=== PATIENT | female | born 1995 | race Caucasian/White ===

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

== ENCOUNTER 2022-03-13 13:20 | Outpatient (CLI) | payer OTHER, BC ==
[2022-03-13 14:37] VITALS: BP 117/60; PULSE 97; RESP 16; TEMP 99
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
== END 2022-03-13 14:07 | disposition home or self-care (01) ==
LOC: FBPOP 13:20
PROVIDERS: ATTEND Obstetrics & Gynecology
DX: O26.92 Pregnancy related conditions, unspecified, second trimester (principal); Z3A.21 21 weeks gestation of pregnancy; Z88.1 Allergy status to other antibiotic agents; Z88.5 Allergy status to narcotic agent; Z88.0 Allergy status to penicillin
CPT/HCPCS: 99213

== ENCOUNTER 2022-03-30 21:17 | Outpatient (CLI) | payer OTHER, BC ==
[2022-03-30] MEDS ORDERED: ONDANSETRON 4 MG/2 ML VIAL IVP STA (21:49)
[2022-03-30] MEDS ORDERED: LACTATED RINGERS 1,000 ML IV SCH (22:00)
[2022-03-30 22:22] LABS: Appearance,Urine Clear (Clear); Bacteria,Urine Moderate /hpf; Bilirubin,Urine Negative (Negative); Blood,Urine Negative (Negative); Color,Urine Yellow; Glucose,Urine (UA) Negative (Negative); Ketones,Urine Negative (Negative); Leukocyte Esterase,Urine Moderate (Negative); Mucus,Urine Moderate /hpf; Nitrite,Urine Negative (Negative); PH, Urine 6.5 (5.0-8.0); Protein,Urine Trace (Negative); RBC,Urine 5 /hpf (0-5); Specific Gravity,Urine 1.024 (1.001-1.035); Squamous Epithelial Cell,Urine 4 /hpf (0-4); WBC,Urine 10 /hpf (0-5)
[2022-03-30 22:22] LABS: African American GFR (CKD) >90 (>60 ml/min/1.73 sqM); Anion Gap 5 mmol/L; Blood Urea Nitrogen 9 mg/dL (7-17); Calcium 8.5 mg/dL (8.4-10.2); Carbon Dioxide 25 mmol/L (22-30); Chloride 104 mmol/L (98-107); Glucose 90 mg/dL (74-99); Non-African American GFR(CKD) >90 (>60 ml/min/1.73 sqM); Potassium 3.6 mmol/L (3.5-5.1); Sodium 134 mmol/L (137-145)
[2022-03-30 23:11] VITALS: BP 114/69; PULSE 100; RESP 17; TEMP 98.3
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
== END 2022-03-30 23:00 | disposition home or self-care (01) ==
LOC: FBPOP 21:17
PROVIDERS: ATTEND Obstetrics & Gynecology
DX: O26.892 Other specified pregnancy related conditions, second trimester (principal); Z3A.24 24 weeks gestation of pregnancy; R11.2 Nausea with vomiting, unspecified; Z88.0 Allergy status to penicillin; Z88.1 Allergy status to other antibiotic agents; Z88.5 Allergy status to narcotic agent
CPT/HCPCS: 99214; 96361; 96374; 36415; 80048; 81001; 87086; J2405

== ENCOUNTER 2022-06-19 21:41 | Outpatient (CLI) | payer BC, OTHER ==
[2022-06-19 22:05] VITALS: BP 119/67; PULSE 98; RESP 17; TEMP 97.6
[2022-06-19] MEDS ORDERED: LACTATED RINGERS 1,000 ML IV SCH (22:30)
[2022-06-19 23:02] LABS: ALT 23 U/L (4-34); AST 29 U/L (14-36); Amylase 74 U/L (30-110); Lipase 54 U/L (23-300)
--- NOTE | 2022-07-09 18:02 | P.MSEPDOC ---
Presenting Problems - Arrival Data Date of Arrival on Unit: 06/19/22 Time of Arrival on Unit: 21:41 Mode of Transport: Ambulatory - Complaint OB-Reason for Admission/Chief Complaint: Pain, Other Comment: Pt presents to triage with c/o diarrhea every time she eats something since yesterday morning and pain in her right upper quadrant since last night that she rates 5 out of 10 Medical History - Information : 2 Para: 0 Term: 0 : 0 Abortions: Spontaneous or Elective: 1 Number of Living Children: 0 - Gestational Age Gestational Age by JONA (wks/days): 35 Weeks and 4 Days Review of Systems - Review of Systems Constitutional: No problems Breast: No problems ENT: No problems Cardiovascular: No problems Respiratory: No problems Gastrointestinal: Diarrhea Genitourinary: No problems Musculoskeletal: No problems Neurological: No problems Skin: No problems Vital Signs - Temperature Temperature: 97.6 F Temperature Source: Temporal Artery Scan - Pulse Pulse Oximetery Pulse Rate: 98 Pulse Assessment Method: Pulse Oximetry - Respirations Respiratory Rate: 17 Oxygen Delivery Method: Room Air O2 Sat by Pulse Oximetry: 97 - Blood Pressure Right Arm Blood Pressure: 119/67 Blood Pressure Mean: 84 Blood Pressure Source: Automatic Cuff Medical Screen Scoring - Uterine Contractions Resting: Soft to palpation - Assessment - Baby A Baseline FHR: 120 Heart Rate - NICHD Category: Category I (Normal) NST: Reactive Physician Notification - Physician Notified Physician Notified Date: 06/19/22 Physician Notified Time: 22:18 Physician: Neida Medeiros New Order Received: Yes - Notification Comment Comment: At 2218, RN spoke with Dr. Medeiros regarding triage pt c/o diarrhea since yesterday morning and RUQ pain in certain positions. Reported maternal VS WNL, category 1 FHT and reactive NST, contx pattern, and abhishek urine. Order received for 1L LR, AST, ALT, amylase and lipase. RN to call with results. At 2305, RN spoke with Dr. Medeiros regarding lab results. Orders received to finish bag of LR and educate pt that she can take Imodium OTC, 2 tablets after having diarrhea and can repeat 4 tablets in a 24 hour period. Maternal Triage Index - Maternal Triage Index Presenting for scheduled procedure w/no complaint: No - Stat/Priority 1 Stat Priority 1: No - Urgent/Priority 2 Urgent Priority 2: No - Prompt/Priority 3 Prompt Priority 3: No - Non-Urgent/Priority 4 Non-Urgent Priority 4: Yes Criteria Met for Priority 4: Diarrhea, RUQ pain 5 out of 10 Disposition - Disposition OB Disposition: Discharge to home, Written follow up instructions reviewed Discharge Date: 06/19/22 Discharge Time: 22:35 I agree with the RN Medical Screening Exam: Yes Case reviewed; plan agreed upon as documented in EMR&OBIX.: Yes Diagnosis: NONINFECTIVE GASTROENTERITIS AND COLITIS, UNSPECIFIED
== END 2022-06-19 23:35 | disposition home or self-care (01) ==
LOC: FBPOP 21:41
PROVIDERS: ATTEND Obstetrics & Gynecology Obstetrics
DX: O99.613 Diseases of the digestive system complicating pregnancy, third trimester (principal); Z3A.35 35 weeks gestation of pregnancy; K52.9 Noninfective gastroenteritis and colitis, unspecified; Z88.0 Allergy status to penicillin; Z88.1 Allergy status to other antibiotic agents; Z88.5 Allergy status to narcotic agent
CPT/HCPCS: 36415; 59025; 82150; 83690; 84450; 84460; 96360; 99214

== ENCOUNTER 2022-07-01 09:42 | Inpatient (IN) | payer BC ==
[2022-07-15] MEDS ORDERED: LIDOCAINE 0.5% (PF) 5 MG/ML (50 ML SDV) SQ PRN (17:34)
[2022-07-15] MEDS ORDERED: miSOPROStoL 200 MCG TAB PO PRN (17:34)
[2022-07-15] MEDS ORDERED: METHYLERGONOVINE 0.2 MG/ML 1 ML AMP IM PRN (17:34)
[2022-07-15] MEDS ORDERED: TERBUTALINE 1 MG/ML VIAL SQ PRN (17:34)
[2022-07-15] MEDS ORDERED: OXYTOCIN 10 UNIT/ML 1 ML VIAL IM PRN (17:34)
[2022-07-15] MEDS ORDERED: TRANEXAMIC ACID IN NACL,ISO-OS 1,000 MG in EMPTY BAG 1 BAG IV PRN (17:34)
[2022-07-15] MEDS ORDERED: CARBOPROST TROMETHAMINE 250 MCG/ML 1 ML AMP IM PRN (17:34)
[2022-07-15] MEDS ORDERED: DINOPROSTONE 10 MG INSERT.ER VAGINAL ONE (17:52)
--- NOTE | 2022-07-15 19:04 | P.HPOB ---
History of Present Illness H&P Date: 07/15/22 Chief Complaint: elective induction of labor 27 year old at 39 weeks and 2 days who presents for elective induction of labor. has been complicated by the finding of marginal cord insertion at 36 week ultrasound. The patient also has a past medical history of chronic pancreatitis. She has had some acute flare ups of pancreatitis during the . Maternal serologies: O positive, antibody negative, rubella immune, VDRL non- reactive, HBsAg negative, HIV negative, 1 hour GTT 132, GBS negative. Past Medical History Additional Past Medical History / Comment(s): Chronic Pancreatitis History of Any Multi-Drug Resistant Organisms: C-DIFF Date of last positivie culture/infection: 2012 MDRO Source:: stool Past Surgical History: Cholecystectomy Additional Past Surgical History / Comment(s): D&C Past Psychological History: No Psychological Hx Reported Smoking Status: Never smoker Past Alcohol Use History: None Reported Past Drug Use History: None Reported Medications and Allergies Home Medications Medication Instructions Recorded Confirmed Type Vit No.179/Iron/Folic 1 tab PO DAILY 03/13/22 06/19/22 History [ Tablet] Allergies Allergy/AdvReac Type Severity Reaction Status Date / Time Penicillins Allergy Unknown Verified 07/05/22 13:18 clindamycin AdvReac Rash/Hives Verified 07/05/22 13:18 morphine AdvReac Unknown Verified 07/05/22 13:18 Exam Vital Signs Temp Pulse Resp BP Pulse Ox 07/15/22 17:26 97.1 F L 109 H 16 125/68 98 Intake and Output 07/15/22 07/15/22 07/15/22 06:59 14:59 22:59 Other: Weight 73.482 kg Focused physical exam is performed. This is a healthy in no apparent distress. Cervical exam is fingertip, long, and high. heart tones are reactive and reassuring. Assessment and Plan Assessment: 27 year old at 39 weeks and 2 days presenting for elective induction of labor Plan: Admit, NPO, mIVF. Cervadil cervical ripening overnight, IV stadol prn pain. Continuous EFM. Close monitoring of mother. Time with Patient: Less than 30 (10 minutes)
[2022-07-15] MEDS: LACTATED RINGERS 1,000 ML IV SCH (23:45)
[2022-07-15 23:59] LABS: Basophils % (A) 0 %; Eosinophils # (A) 0.1 k/uL (0-0.7); Eosinophils % (A) 0 %; HCT 40.3 % (34.0-46.0); Lymphocytes # (A) 2.3 k/uL (1.0-4.8); Lymphocytes % (A) 17 %; MCH 29.2 pg (25.0-35.0); MCHC 32.3 g/dL (31.0-37.0); MCV 90.3 fL (80.0-100.0); Mean Platelet Volume 7.5; Monocytes # (A) 0.8 k/uL (0-1.0); Monocytes % (A) 6 %; Neutrophils % (A) 74 %; Platelet Count 208 k/uL (150-450); RBC 4.46 m/uL (3.80-5.40); RDW 13.6 % (11.5-15.5); WBC 13.5 k/uL (3.8-10.6)
[2022-07-16] MEDS ORDERED: fentaNYL (PF) 50 MCG/ML 5 ML AMP ONE (00:10)
[2022-07-16] MEDS ORDERED: SODIUM CHLORIDE 0.9% 100 ML BAG ONE (00:10)
[2022-07-16] MEDS ORDERED: ROPIVACAINE 5 MG/ML 20 ML AMPULE ONE (00:10)
[2022-07-16] MEDS: LACTATED RINGERS 1,000 ML IV SCH ×3 (02:50→23:01)
[2022-07-16] MEDS ORDERED: OXYTOCIN 30 UNITS/500 ML NS 30 UNIT in SALINE 1 500ML.BAG IV SCH (05:45)
[2022-07-16] MEDS ORDERED: OXYTOCIN 10 UNIT/ML 1 ML VIAL IM PRN (20:54)
[2022-07-16] MEDS ORDERED: miSOPROStoL 200 MCG TAB PO PRN (20:54)
[2022-07-16] MEDS ORDERED: TRANEXAMIC ACID IN NACL,ISO-OS 1,000 MG in EMPTY BAG 1 BAG IV PRN (20:54)
[2022-07-16] MEDS ORDERED: METHYLERGONOVINE 0.2 MG/ML 1 ML AMP IM PRN (20:54)
[2022-07-16] MEDS ORDERED: CITRIC ACID-SODIUM CITRATE 15 ML CUP PO ONE (20:54)
[2022-07-16] MEDS ORDERED: KETOROLAC 15 MG/ML 1 ML VIAL ONE (21:30)
[2022-07-16] MEDS ORDERED: fentaNYL (PF) 50 MCG/ML 2 ML AMP ONE (21:30)
[2022-07-16] MEDS ORDERED: ONDANSETRON 4 MG/2 ML VIAL ONE (21:30)
[2022-07-16] MEDS ORDERED: OXYTOCIN 30 UNITS/500 ML NS BAG IV ONE (21:30)
[2022-07-16] MEDS ORDERED: NALOXONE 0.4 MG/ML 1 ML VIAL IV PRN ×2 (22:23→22:24)
[2022-07-16] MEDS ORDERED: SIMETHICONE 80 MG CHEWABLE PO PRN (22:24)
[2022-07-16] MEDS ORDERED: diphenhydrAMINE 50 MG CAP PO PRN (22:24)
[2022-07-16] MEDS ORDERED: ZOLPIDEM 5 MG TAB PO PRN (22:24)
[2022-07-16] MEDS ORDERED: METOCLOPRAMIDE 5 MG/ML 2 ML VIAL IVP PRN (22:24)
[2022-07-16] MEDS ORDERED: diphenhydrAMINE 50 MG/ML 1 ML VIAL IVP PRN ×2 (22:24)
[2022-07-16] MEDS ORDERED: ONDANSETRON 4 MG/2 ML VIAL IVP PRN (22:24)
[2022-07-16] MEDS ORDERED: diphenhydrAMINE 25 MG CAP PO PRN (22:24)
[2022-07-16] MEDS ORDERED: LACTATED RINGERS 1,000 ML IV SCH (22:30)
--- NOTE | 2022-07-16 22:33 | P.OP ---
Date of Procedure: 07/16/22 Preoperative Diagnosis: 1. Term IUP at 39 weeks and 2 days 2. Acute on chronic pancreatitis 3. Maternal request 4. Marginal cord insertion Postoperative Diagnosis: Same Procedure(s) Performed: Primary Lower Transverse Section Implants: None Anesthesia: epidural Surgeon: Zoe Zayas Textile Dyer #1: Maria M Ibrahim Estimated Blood Loss (ml): 490 IV fluids (ml): 400 Urine output (ml): 200 (abhishek-colored before and after surgery) Pathology: other (placenta) Condition: stable Disposition: floor Indications for Procedure: This is a 27-year-old 1 para 0 at 39 weeks and 2 days who is being electively induced. She has a past medical history of chronic pancreatitis and acute flareups are often precipitated by stress and pain. During labor with oxytocin induction the patient began to experience severe pain from her pancreas. She progressed slowly throughout the day and eventually could no longer tolerate the pain. The patient requested a section. The risks, benefits, and alternatives to section were discussed with the patient including the risk of bleeding, infection, and damage to surrounding structures including bladder/bowel/ureters. All questions were answered and the patient desired to proceed with a section. Operative Findings: Live female infant in occiput anterior presentation with occult cord prolapse, colorless amniotic fluid, Apgars 7/9, Weight 7#6oz. Normal uterus, bilateral tubes and ovaries. Description of Procedure: he patient was taken to the operating room where spinal anesthesia was found to be adequate. 2 grams of Ancef were given for infection prophylaxis. She was prepared and draped in the dorsal supine position with a leftward tilt. A Pfannenstiel skin incision was made with the scalpel. The incision was carried down to the fascia. The fascia was incised and extended laterally with Wiggins scissors. The superior aspect of the fascia was grasped with Aime clamps. The underlying rectus muscle was dissected off sharply with Wiggisn scissors. In a similar fashion, the inferior aspect of the fascia was elevated with Aime clamps and the rectus muscle and pyramidalis were dissected off. Excellent hemostasis was achieved with the bovie. The rectus muscle was in the midline down to the level of the pubic symphysis. Pre-peritoneal fatty tissue was bluntly dissected to expose the peritoneum. The peritoneum was found to be free of adherent bowel and entered sharply with Wiggins scissors. The peritoneal incision was extended superiorly and inferiorly to the bladder reflection with good visualization of the bladder. The bladder blade was inserted and vesicouterine peritoneum was identified. Intraabdominal survey revealed scant, clear peritoneal fluid and the thinned-out lower uterine segment. The vesicouterine peritoneum was opened with scissors and the bladder flap was developed. The bladder blade was repositioned to keep the bladder out of the operative field. The lower uterine segment was incised with a scalpel. The uterine incision was extended bluntly with lateral and upward traction.The fetus was in occiput anterior position. The head was elevated out of the pelvis with special attention paid to avoid using the uterine incision as a fulcrum. Gentle fundal pressure was applied once the head was brought into the incision. The infant was delivered with no difficulty. The mouth and nose were suctioned with a bulb. The cord was clamped and cut. The infant was handed off to the student finance advisor. IV oxytocin was initiated to facilitate uterine contractions. The placenta was delivered intact with manual massage of uterine fundus. The uterus was then exteriorized and the inside of the uterus was gently wiped with a lap sponge to assure complete removal of placental membranes. The uterine incision was closed with a 0-Polysorb suture in a running locked fashion. A second imbricating layer of 0-Polysorb was used to facilitate hemostasis. The ovaries and tubes were found to be normal. The uterus, tubes, and ovaries were then gently returned to the abdominal cavity. The blood clots and fluid were wiped out of the abdomen and pelvis with moist laparotomy sponges. The uterine incision was reinspected and excellent hemostasis was noted. The fascial layer was closed with a 0-Vicryl suture. The subcutaneous layer was reapproximated with 2-0 Plain Gut. The skin was closed with 4-0 Monocryl in a subcuticular fashion. The patient tolerated the procedure well. All the counts were correct times two. The patient was taken to the recovery room in a stable condition.
[2022-07-16] MEDS ORDERED: HYDROmorphone PCA 10 MG/50 ML BAG IV PRN (23:00)
[2022-07-17] MEDS: ACETAMINOPHEN TAB 500 MG TAB PO SCH ×4 (01:32→20:08)
[2022-07-17] MEDS: LACTATED RINGERS 1,000 ML IV SCH ×2 (01:50→08:44)
[2022-07-17] MEDS: KETOROLAC 15 MG/ML 1 ML VIAL IVP SCH ×4 (06:15→22:56)
[2022-07-17 07:39] LABS: Basophils % (A) 0 %; Eosinophils % (A) 0 %; HGB 10.6 gm/dL (11.4-16.0); Lymphocytes # (A) 1.3 k/uL (1.0-4.8); Lymphocytes % (A) 8 %; MCH 29.7 pg (25.0-35.0); MCHC 34.1 g/dL (31.0-37.0); MCV 87.3 fL (80.0-100.0); Mean Platelet Volume 7.8; Monocytes # (A) 0.9 k/uL (0-1.0); Monocytes % (A) 5 %; Neutrophils # (A) 14.7 k/uL (1.3-7.7); Neutrophils % (A) 85 %; Platelet Count 167 k/uL (150-450); RBC 3.55 m/uL (3.80-5.40); RDW 13.8 % (11.5-15.5); WBC 17.3 k/uL (3.8-10.6)
[2022-07-17] MEDS: SENNOSIDES-DOCUSATE SODIUM 1 EACH TAB PO SCH ×2 (08:56→20:12)
--- NOTE | 2022-07-17 09:00 | P.PNOBGPC ---
Subjective - Subjective Principal diagnosis: s/p primary section Interval history: The patient is doing well this morning and had no acute events overnight. She has no complaints this morning. She reports minimal lochia, passing flatus, ambulating, and eating/drinking without nausea or vomiting. Avalos catheter just removed, awaiting void. She is her infant without difficulty. She denies chest pain, shortness of breathing, fevers, or chills overnight. She denies pain or swelling in the legs. Patient reports: Reports appetite normal, Reports pain well controlled, Reports ambulating normally : doing well, nursing well Objective - Vital Signs Latest vital signs: Vital Signs Temp Pulse Resp BP Pulse Ox 07/17/22 04:00 98.2 F 72 16 120/76 97 07/17/22 00:30 99.4 F 100 16 117/69 94 L 07/17/22 00:00 98 16 118/65 95 07/16/22 23:30 105 H 16 123/58 95 07/16/22 23:15 93 16 115/65 96 07/16/22 23:00 95 16 113/58 98 07/16/22 22:45 91 16 115/56 95 07/16/22 22:30 99.4 F 90 16 91/53 96 07/16/22 22:23 95 Intake and Output 07/16/22 07/17/22 07/17/22 22:59 06:59 14:59 Intake Total 33.667 Output Total 640 1020 Balance -606.333 -1020 Intake: Intake, IV Titration 33.667 Amount Oxytocin 30 Units/500 ml 33.667 Ns 30 unit In Saline 1 500ml.bag @ Per Protocol IV .Q0M [facility] Rx#:[id number] Output: Urine 150 700 Output, Quantitative 490 320 Blood Loss Other: Voiding Method Indwelling Catheter Indwelling Catheter - Exam Extremities: Present: normal Abdomen: Present: normal appearance, soft Incision: Present: normal, dressed Uterus: Present: normal, firm - Labs Labs: Abnormal Lab Results - Last 24 Hours (Table) 07/17/22 Range/Units 06:55 WBC 17.3 H (3.8-10.6) k/uL RBC 3.55 L (3.80-5.40) m/uL Hgb 10.6 L (11.4-16.0) gm/dL Hct 31.0 L (34.0-46.0) % Neutrophils # 14.7 H (1.3-7.7) k/uL Assessment and Plan Assessment: 27-year-old 1 para 1001 on postoperative day #1 status post primary lower transverse section secondary to maternal request Plan: 1. Postoperative. Patient meeting all postoperative milestones appropriately. Continue to monitor. 2. Infant female at bedside doing well. Dispo: Anticipate discharge home tomorrow
[2022-07-18] MEDS: LACTATED RINGERS 1,000 ML IV SCH ×2 (01:53→03:29)
[2022-07-18] MEDS: ACETAMINOPHEN TAB 500 MG TAB PO SCH ×3 (02:18→18:21)
[2022-07-18] MEDS: IBUPROFEN 600 MG TAB PO PRN ×2 (09:25→15:23)
[2022-07-18] MEDS: SENNOSIDES-DOCUSATE SODIUM 1 EACH TAB PO SCH (09:26)
--- NOTE | 2022-07-18 11:22 | P.DS ---
Providers Date of admission: 07/15/22 17:15 Expected date of discharge: 07/18/22 Attending physician: Zoe Zayas MD Primary care physician: Stated None Hospital Course: This is a 27-year-old now 1 para 1001 who is postoperative day #2 status post a primary lower transverse section at 39 weeks secondary to maternal request. She is meeting all postoperative and milestones appropriately. She is ambulating without difficulty, pain is well-controlled with oral medications, she is eating and drinking without nausea or vomiting, she is voiding and passing flatus. Infant female is at the bedside and breast- feeding well without difficulties. She desires discharge home today. I discussed care of the incision and the recommended 6 week pelvic rest period. I encouraged the patient to call the office for any concerns including heavy bleeding, breast complaints, foul-smelling vaginal discharge, fevers or chills, nausea or vomiting. I discussed with the patient that she will follow up with me in 2 weeks for an incision check. All questions are answered at this time. Assessment: 27 year old POD#2 s/p LTCS 2/2 maternal request Patient Condition at Discharge: Good Plan - Discharge Summary New Discharge Prescriptions: New polyethylene glycoL 3350 [Miralax] 17 gm PO DAILY PRN #527 gm PRN Reason: Constipation Ibuprofen [Motrin] 600 mg PO Q6HR PRN #30 tab PRN Reason: Mild Pain (Scale 1 To 3) oxyCODONE HCL [Roxicodone] 5 mg PO Q6HR PRN 3 Days #12 tab PRN Reason: Breakthrough Pain Acetaminophen Tab [Tylenol] 650 mg PO Q6H PRN #30 tab PRN Reason: Mild Pain (Scale 1 To 3) No Action Vit No.179/Iron/Folic [ Tablet] 1 tab PO DAILY Discharge Medication List Vit No.179/Iron/Folic [ Tablet] 1 tab PO DAILY 03/13/22 [History] Acetaminophen Tab [Tylenol] 650 mg PO Q6H PRN #30 tab 07/18/22 [Rx] Ibuprofen [Motrin] 600 mg PO Q6HR PRN #30 tab 07/18/22 [Rx] oxyCODONE HCL [Roxicodone] 5 mg PO Q6HR PRN 3 Days #12 tab 07/18/22 [Rx] polyethylene glycoL 3350 [Miralax] 17 gm PO DAILY PRN #527 gm 07/18/22 [Rx] Follow up Appointment(s)/Referral(s): Zoe Zayas MD [STAFF PHYSICIAN] - 2 Weeks (incision check) Patient Instructions/Handouts: Your Baby (DC), How to Increase Your Milk Supply (DC), How to Tell if Your Baby is Getting Enough Breast Milk (DC), Depression (DC), Bleeding (DC), (DC) Activity/Diet/Wound Care/Special Instructions: Pelvic rest 6 weeks, no heavy lifting more than 15 pounds for 6 weeks Discharge Disposition: HOME SELF-CARE
[2022-07-18 15:45] VITALS: BP 112/68; PULSE 65; RESP 15; TEMP 97.8
== END 2022-07-18 20:20 | disposition home or self-care (01) | DRG 786 ==
LOC: 4FBP 07-15 17:15
PROVIDERS: ADMIT Obstetrics & Gynecology; ATTEND Obstetrics & Gynecology
PROC: 3E033VJ Introduction of Other Hormone into Peripheral Vein, Percutaneous Approach (ICD-10-PCS; 2022-07-16)
PROC: 10D00Z1 Extraction of Products of Conception, Low, Open Approach (ICD-10-PCS; principal; 2022-07-16 21:30)
DX: O43.193 Other malformation of placenta, third trimester (principal); K85.90 Acute pancreatitis without necrosis or infection, unspecified; K86.1 Other chronic pancreatitis; O69.0XX0 Labor and delivery complicated by prolapse of cord, not applicable or unspecified; Z3A.39 39 weeks gestation of pregnancy; Z37.0 Single live birth; Z88.0 Allergy status to penicillin; Z28.310 Unvaccinated for COVID-19; Z88.1 Allergy status to other antibiotic agents; Z88.5 Allergy status to narcotic agent
CPT/HCPCS: 85025; 86850; 86900; 86901

== ENCOUNTER 2022-07-05 13:00 | Outpatient (CLI) | payer BC, OTHER ==
[2022-07-05 13:50] VITALS: BP 130/76; PULSE 101; RESP 16; TEMP 97.9
--- NOTE | 2022-08-29 19:00 | P.MSEPDOC ---
Presenting Problems - Arrival Data Date of Arrival on Unit: 07/05/22 Time of Arrival on Unit: 13:04 Mode of Transport: Ambulatory - Complaint OB-Reason for Admission/Chief Complaint: Other Comment: sent from office for possible decels Medical History - Information : 1 Para: 0 Number of Living Children: 0 - Gestational Age Gestational Age by JONA (wks/days): 37 Weeks and 6 Days Review of Systems - Review of Systems Constitutional: No problems Breast: No problems ENT: No problems Cardiovascular: No problems Respiratory: No problems Gastrointestinal: No problems Genitourinary: No problems Musculoskeletal: No problems Neurological: No problems Skin: No problems Vital Signs - Temperature Temperature: 97.9 F Temperature Source: Axillary - Pulse Left Sitting Brachial Pulse Rate: 101 Pulse Assessment Method: Automatic Cuff - Respirations Respiratory Rate: 16 Oxygen Delivery Method: Room Air O2 Sat by Pulse Oximetry: 100 - Blood Pressure Left Arm Blood Pressure: 130/76 Blood Pressure Mean: 94 Blood Pressure Source: Automatic Cuff Medical Screen Scoring - Assessment - Baby A Baseline FHR: 140 Heart Rate - NICHD Category: Category I (Normal) NST: Reactive Physician Notification - Physician Notified Physician Notified Date: 07/05/22 Physician Notified Time: 13:25 Physician: Zoe Zayas Order Received: Yes - Notification Comment Comment: dc Maternal Triage Index - Maternal Triage Index Presenting for scheduled procedure w/no complaint: No - Stat/Priority 1 Stat Priority 1: No - Urgent/Priority 2 Urgent Priority 2: No - Prompt/Priority 3 Prompt Priority 3: No - Non-Urgent/Priority 4 Non-Urgent Priority 4: Yes Criteria Met for Priority 4: sent from office Disposition - Disposition OB Disposition: Discharge to home Discharge Date: 07/05/22 Discharge Time: 13:49 I agree with the RN Medical Screening Exam: Yes Case reviewed; plan agreed upon as documented in EMR&OBIX.: Yes Diagnosis: OTHER SPECIFIED COMPLICATIONS OF LABOR AND DELIVERY
== END 2022-07-05 13:45 | disposition home or self-care (01) ==
LOC: FBPOP 13:00
PROVIDERS: ATTEND Obstetrics & Gynecology
DX: O75.89 Other specified complications of labor and delivery (principal); Z3A.37 37 weeks gestation of pregnancy; Z88.0 Allergy status to penicillin; Z88.1 Allergy status to other antibiotic agents; Z88.5 Allergy status to narcotic agent
CPT/HCPCS: 59025; 99213